=== PATIENT | female | born 1985 | race Caucasian/White ===

== ENCOUNTER 2017-05-17 12:02 | Emergency (ER) | payer OTHER ==
[~2017-05-17] VITALS: Ht 162.6 cm; Wt 64.9 kg
[2017-05-17 12:08] VITALS: BP 113/80
[2017-05-17] MEDS ORDERED: LIDOCAINE 1% / SOD BICARB 8.4% 20 ML VIAL. IJ ONE (12:45)
[2017-05-17] MEDS ORDERED: DIPHTH,PERTUSS(ACELL),TET TOX 0.5 ML DISP.SYRIN. VAX IM ONE (12:45)
[2017-05-17] MEDS ORDERED: HYDROcodone/APAP 5/325MG 1 TAB TABLET PO ONE (12:45)
--- NOTE | 2017-05-17 12:47 | RAD ---
FOOT LEFT 3V Clinical Indication: pain, first digit Comparison: None. Findings: No acute fracture or malalignment. The joint spaces are maintained. No significant soft tissue abnormality. IMPRESSION: No acute fracture or malalignment.
--- NOTE | 2017-05-17 13:37 | PHYS DOC ---
Past Medical History Past Medical History: No Pertinent History Past Surgical History: No Surgical History Alcohol Use: Occasionally Drug Use: None Adult General Chief Complaint Chief Complaint: TOE PROBLEM HPI HPI Patient is a 32 year old female who presents with foreign object to the left right toe. Patient states she tripped on rebars and plastic rods and something got into her left great toe. Review of Systems Review of Systems Constitutional: Denies fever or chills [] Eyes: Denies change in visual acuity, redness, or eye pain [] Musculoskeletal: foreign object to the left great toe Neurologic: Denies headache, focal weakness or sensory changes [] Endocrine: Denies polyuria or polydipsia [] Current Medications Current Medications Current Medications Medications (Trade) Dose Ordered Sig/Aracely Start Time Stop Time Status Last Admin Dose Admin Acetaminophen/ Hydrocodone Bitart (Lortab 5/325) 1 tab 1X ONCE 05/17/17 12:45 05/17/17 12:46 DC 05/17/17 12:44 1 TAB Diphtheria/ Tetanus/Acell Pertussis (Boostrix) 0.5 ml ONCE ONCE 05/17/17 12:45 05/17/17 12:46 DC 05/17/17 12:47 0.5 ML Lidocaine/Sodium Bicarbonate (Buffered Lidocaine 1%) 20 ml 1X ONCE 05/17/17 12:45 05/17/17 12:46 DC 05/17/17 12:45 20 ML Allergies Allergies Allergies Coded Allergies Type Severity Reaction Last Updated Verified No Known Drug Allergies 05/17/17 No Physical Exam Physical Exam Constitutional: Well developed, well nourished, no acute distress, non-toxic appearance. [] HENT: Normocephalic, atraumatic, bilateral external ears normal, oropharynx moist, no oral exudates, nose normal. [] Skin: see extremity Back: No tenderness, no CVA tenderness. [] Extremities: Left great toe lateral aspect just below the nail bed with a foreign object approximately 1 cm long and underneath the skin. Neurovascular exam is intact to the left great toe. +2 left pedal pulse. Cap refill less than 2 seconds the left great toe. Neurologic: Alert and oriented X 3, normal motor function, normal sensory function, no focal deficits noted. [] Psychologic: Affect normal, judgement normal, mood normal. [] Current Patient Data Vital Signs Vital Signs Date Time Temp Pulse Resp B/P (MAP) Pulse Ox O2 Delivery O2 Flow Rate FiO2 05/17/17 12:44 22 05/17/17 12:08 98.6 68 100 Room Air 98.6 EKG EKG [] Radiology/Procedures Radiology/Procedures []Indication: Left great toe foreign object Procedure: The area of the foreign body was left great toe. Local anesthesia over the foreign body site was 1% buffered lidocaine. The area was cleaned with normal saline and Betadine. A tiny 0.5 cm laceration was made over the foreign object. Forceps were used to pull the foreign object. the following: two pieces of 1 cm each splinters and 0.3 cm splinter was removed from the left great toe. The area was cleaned and covered with nonstick dressing. Tetanus was updated. PROCEDURE: FOOT LEFT 3V FOOT LEFT 3V Clinical Indication: pain, first digit Comparison: None. Findings: No acute fracture or malalignment. The joint spaces are maintained. No significant soft tissue abnormality. IMPRESSION: No acute fracture or malalignment. DICTATED and SIGNED BY: ÁNGEL MACIEL MD DATE: 05/17/17 0970 CC: JOHNNY AGUERO APRN; NO PCP ~ Course & Med Decision Making Course & Med Decision Making Pertinent Labs and Imaging studies reviewed. (See chart for details) Patient is in the ED with left great toe foreign object. See procedure note. 3 splint is removed from the left great toe. Tetanus was updated. Provided return precautions and discharged in stable condition. Dragon Disclaimer Dragon Disclaimer This electronic medical record was generated, in whole or in part, using a voice recognition dictation system. Departure Departure Impression: Primary Impression: Splinter of toe Disposition: HOME, SELF-CARE Condition: STABLE Referrals: NO PCP (PCP) follow up with your doctor as needed. Patient Instructions: Wood Splinters Additional Instructions: We removed splinters from your left great toe. Keep the area clean and dry. Apply Neosporin to the area twice a day for 7 days. Keep the area clean and dry. Monitor it for signs and symptoms of infection including but not limited to increased redness warmth or odor drainage from the area and return to the ED if they occur. Scripts Tramadol Hcl (ULTRAM) 50 Mg Tablet 1 TAB PO Q6HRS, #30 TAB Prov: JOHNNY AGUERO APRN 05/17/17 Problem Qualifiers Primary Impression: Splinter of toe Encounter type: initial encounter Laterality: left Qualified Codes: S90.455A - Superficial foreign body, left lesser toe(s), initial encounter JOHNNY AGUERO [employer]PECTOR May 17, 2017 13:37
[2017-05-17] MEDS ORDERED: TRAM-48 PO (13:38)
== END 2017-05-17 14:02 | disposition home or self-care (01) ==
LOC: ER 12:02
DX: S90.452A Superficial foreign body, left great toe, initial encounter (principal); W18.49XA Other slipping, tripping and stumbling without falling, initial encounter; Y93.89 Activity, other specified; Y92.89 Other specified places as the place of occurrence of the external cause; Y99.8 Other external cause status
CPT/HCPCS: 10120; 73630; 90471; 90715; 99285-25

== ENCOUNTER 2020-08-28 00:34 | Emergency (ER) | payer BC, OTHER ==
[~2020-08-28] VITALS: Ht 162.6 cm; Wt 68.0 kg
[~2020-08-28 00:34] MED LIST: TRAM-48 PO
--- NOTE | 2020-08-28 01:04 | PHYS DOC ---
Past Medical History Past Medical History: No Pertinent History Past Surgical History: No Surgical History Smoking Status: Never Smoker Alcohol Use: Occasionally Drug Use: None General Adult EDM: Chief Complaint: MULTIPLE COMPLAINTS HPI: HPI: Patient is a 35 year old female who presented to ER today for evaluation of epigastric abdominal pain, left low back pain that radiates to her left knee area associated with some tingling sensation for a week. Patient has history of acid reflux, she has been taking antiacid medication but did not get better. Patient went to see the chiropractor 3 times in a week for her back problem, no x-ray was done. Patient said they did some manipulation her back but she did not get better so she came here for evaluation today. Patient denies any bowel or bladder incontinence. Patient denies any nausea vomiting, no fever, no chest pain, no trouble breathing. Patient denies any injury to her back. Patient denies any bowel or bladder incontinence. Review of Systems: Review of Systems: Constitutional: Denies fever or chills. [] Eyes: Denies change in visual acuity. [] HENT: Denies nasal congestion or sore throat. [] Respiratory: Denies cough or shortness of breath. [] Cardiovascular: Denies chest pain or edema. [] GI: Positive for abdominal pain, no nausea vomiting, no diarrhea. : Denies dysuria. [] Musculoskeletal: Positive for left-sided back pain, no joint pain. Integument: Denies rash. [] Neurologic: Denies headache, focal weakness or sensory changes. [] Endocrine: Denies polyuria or polydipsia. [] Lymphatic: Denies swollen glands. [] Psychiatric: Denies depression or anxiety. [] Heart Score: Risk Factors: Risk Factors: DM, Current or recent (<one month) smoker, HTN, HLP, family history of CAD, obesity. Risk Scores: Score 0 - 3: 2.5% MACE over next 6 weeks - Discharge Home Score 4 - 6: 20.3% MACE over next 6 weeks - Admit for Clinical Observation Score 7 - 10: 72.7% MACE over next 6 weeks - Early Invasive Strategies Allergies: Allergies: Allergies Coded Allergies Type Severity Reaction Last Updated Verified No Known Drug Allergies 05/17/17 No Physical Exam: PE: Constitutional: Well developed, well nourished, no acute distress, non-toxic appearance. [] HENT: Normocephalic, atraumatic, bilateral external ears normal, oropharynx moist, no oral exudates, nose normal. [] Eyes: PERRLA, EOMI, conjunctiva normal, no discharge. [] Neck: Normal range of motion, no tenderness, supple, no stridor. [] Cardiovascular:Heart rate regular rhythm, no murmur [] Lungs & Thorax: Bilateral breath sounds clear to auscultation [] Abdomen: Bowel sounds normal, soft, no tenderness, no masses, no pulsatile masses. [] Skin: Warm, dry, no erythema, no rash. [] Back: There is no midline vertebral tenderness to palpation on the lumbar spine area, there is some tenderness to palpation on the left paraspinous muscle on the lumbar spine area. Extremities: No tenderness, no cyanosis, no clubbing, ROM intact, no edema. [] Neurologic: Alert and oriented X 3, normal motor function, normal sensory function, no focal deficits noted. [] Psychologic: Affect normal, judgement normal, mood normal. [] Current Patient Data: Labs: Laboratory Tests Test 08/28/20 00:46 08/28/20 00:48 08/28/20 01:20 Bedside Urine HCG, Qualitative Hcg negative Urine Collection Type Unknown Urine Color Yellow Urine Clarity Cloudy Urine pH 7.5 Urine Specific [place] 1.025 Urine Protein Negative mg/dL Urine Glucose (UA) Negative mg/dL Urine Ketones (Stick) Trace mg/dL Urine Blood Large Urine Nitrite Negative Urine Bilirubin Negative Urine Urobilinogen Dipstick 0.2 mg/dL Urine Leukocyte Esterase Trace Urine RBC 11-20 /HPF Urine WBC 5-10 /HPF Urine Squamous Epithelial Cells Mod /LPF Urine Amorphous Sediment Present /HPF Urine Bacteria Moderate /HPF Urine Mucus Mod /LPF White Blood Count 5.8 x10^3/uL Red Blood Count 4.42 x10^6/uL Hemoglobin 12.4 g/dL Hematocrit 36.4 % Mean Corpuscular Volume 82 fL Mean Corpuscular Hemoglobin 28 pg Mean Corpuscular Hemoglobin Concent 34 g/dL Red Cell Distribution Width 14.9 % Platelet Count 268 x10^3/uL Neutrophils (%) (Auto) 57 % Lymphocytes (%) (Auto) 33 % Monocytes (%) (Auto) 8 % Eosinophils (%) (Auto) 2 % Basophils (%) (Auto) 0 % Neutrophils # (Auto) 3.3 x10^3/uL Lymphocytes # (Auto) 1.9 x10^3/uL Monocytes # (Auto) 0.5 x10^3/uL Eosinophils # (Auto) 0.1 x10^3/uL Basophils # (Auto) 0.0 x10^3/uL Sodium Level 142 mmol/L Potassium Level 3.5 mmol/L Chloride Level 105 mmol/L Carbon Dioxide Level 29 mmol/L Anion Gap 8 Blood Urea Nitrogen 16 mg/dL Creatinine 1.1 mg/dL Estimated GFR (Cockcroft-Gault) 57.2 BUN/Creatinine Ratio 15 Glucose Level 96 mg/dL Calcium Level 8.9 mg/dL Total Bilirubin 0.4 mg/dL Aspartate Amino Transf (AST/SGOT) 14 U/L Alanine Aminotransferase (ALT/SGPT) 15 U/L Alkaline Phosphatase 37 U/L Total Protein 7.0 g/dL Albumin 3.9 g/dL Albumin/Globulin Ratio 1.3 Lipase 96 U/L Current Medications Medications (Trade) Dose Ordered Sig/Aracely Route PRN Reason Start Time Stop Time Status Last Admin Dose Admin Sodium Chloride 1,000 ml @ 1,000 mls/hr 1X ONCE IV 08/28/20 02:00 08/28/20 02:59 DC 08/28/20 01:52 Iohexol (Omnipaque 300 Mg/ml) 60 ml 1X ONCE IV 08/28/20 02:15 08/28/20 02:16 DC 08/28/20 02:11 Info (CONTRAST GIVEN -- Rx MONITORING) 1 each PRN DAILY PRN MC SEE COMMENTS 08/28/20 02:15 08/30/20 02:14 Ketorolac Tromethamine (Toradol 30mg Vial) 30 mg 1X ONCE IVP 08/28/20 04:30 08/28/20 04:31 DC 08/28/20 04:29 Methylprednisolone Sodium Succinate (SOLU-Medrol 125MG VIAL) 125 mg 1X ONCE IV 08/28/20 04:30 08/28/20 04:31 DC 08/28/20 04:28 Famotidine (Pepcid) 20 mg 1X ONCE PO 08/28/20 04:45 08/28/20 04:46 UNV Multi-Ingredient Mouthwash/Gargle (Gi Cocktail) 20 ml 1X ONCE SWSW 08/28/20 04:45 08/28/20 04:46 UNV Laboratory Tests Test 08/28/20 00:46 POC Urine HCG, Qualitative Hcg negative (Negative) EKG: EKG: [] Radiology/Procedures: Radiology/Procedures: [][facility] [address] [place] [address] IMAGING REPORT Signed PATIENT: NAN KEITA ACCOUNT: [id number] : 1985 LOCATION: ER AGE: 35 SEX: F EXAM STATUS: REG ER ORD. PHYSICIAN: TK MADSEN DO REASON: ABDOMINAL PAIN, BACK PAIN;OMNI 300, 60ML PROCEDURE: CT ABD PELV W/ IV CONTRST ONLY EXAM: 1. CT ABDOMEN/PELVIS WITH CONTRAST. 2. CT LUMBAR SPINE WITHOUT CONTRAST. HISTORY: Abdominal pain and back pain. TECHNIQUE: Computed tomography of the abdomen and pelvis was performed after the intravenous administration of iodinated contrast. CT of the lumbar spine was performed without intravenous contrast. One or more of the following individualized dose reduction techniques were utilized for this examination: 1. Automated exposure control. 2. Adjustment of the mA and/or kV according to patient size. 3. Use of iterative reconstruction technique. COMPARISON: None. FINDINGS: Lung windows through the visualized portions of the bases reveal no abnormality. Bone windows reveal no suspicious lesions. The liver, gallbladder, pancreas, adrenal glands, and spleen are unremarkable. Small dense foci within the kidneys. An early excretion of contrast or tiny calculi measuring <2 mm. There is no hydronephrosis. There are no ureteral calculi. Note is made of a circumaortic left renal vein. There are no pathologically enlarged lymph nodes. The uterus and ovaries are unremarkable by CT. There is no evidence of appendicitis. There is no small bowel obstruction. A mild lumbar levocurvature is likely positional. No fractures are identified. Intervertebral disc heights are maintained. There is no central canal stenosis or neural foraminal stenosis. IMPRESSION: 1. No cause for abdominal pain is identified. 2. Tiny bilateral renal calculi versus early excretion of contrast. No ureteral calculi. 3. Unremarkable examination of the lumbar spine. Electronically signed by: Domenico Solis MD (08/28/2020 3:37 AM) [facility] DICTATED and SIGNED BY: NAHOMY SOLIS MD DATE: 08/28/20 0337 Course & Med Decision Making: Course & Med Decision Making Pertinent Labs and Imaging studies reviewed. (See chart for details) Patient is a 35-year-old female who was evaluated in the ER due to epigastric abdominal pain and low back pain that radiated to her left side. CT scan her abdomen pelvic and lumbar spine did not show any acute problems. Patient will be discharged home, she was recommended follow-up with her family physician for outpatient evaluation of her back pain with an MRI of her lumbar spine. Patient is amenable to plan of care. Dragon Disclaimer: Dragon Disclaimer: This electronic medical record was generated, in whole or in part, using a voice recognition dictation system. Departure Departure Impression: Primary Impression: Gastritis Additional Impression: Sciatica, left side Disposition: 01 DC HOME SELF CARE/HOMELESS Condition: STABLE Referrals: NO PCP (PCP) follow up with your doctor for outpatient evaluation of your lower back pain with MRI of your lumbar spine. Patient Instructions: Gastritis, Adult, Sciatica Additional Instructions: Thank you for visiting our Emergency Department. We appreciate you trusting us with your care. If any additional problems come up don't hesitate to return to visit us. Please follow up with your primary care provider so they can plan additional care if needed and know about the problem that you had. If symptoms worsen come back to the Emergency Department. Any concerning symptoms that start such as chest pain, shortness of air, weakness or numbness on one side of the body, running high fevers or any other concerning symptoms return to the ER. Scripts Sucralfate (CARAFATE) 1 Gm Tablet 1 TAB PO QID for 14 Days, #56 TAB 0 Refills Prov: TK MADSEN DO 08/28/20 Omeprazole Magnesium (PRILOSEC OTC) 20 Mg Tablet.dr 20 MG PO DAILY for 30 Days, #30 TAB Prov: TK MADSEN DO 08/28/20 TK MADSEN DO Aug 28, 2020 01:04
[2020-08-28 01:14] LABS: BILIRUBIN,URINE NEGATIVE (NEG); CLARITY,URINE CLOUDY; COLOR,URINE YELLOW; NITRITE,URINE NEGATIVE (NEG); PH,URINE 7.5 (<5.0-8.0); PROTEIN,URINE NEGATIVE (NEG-TRACE); UROBILINOGEN,URINE 0.2 mg/dL (0.2 mg/dL)
[2020-08-28 01:23] LABS: AMORPHOUS SEDIMENT,UR PRESENT /HPF; BACTERIA,URINE MODERATE /HPF (0-FEW)
[2020-08-28 01:28] LABS: BASO % 0 % (0-3); EOS # 0.1 x10^3/uL (0.0-0.7); EOS % 2 % (0-3); HEMATOCRIT 36.4 % (36.0-47.0); HEMOGLOBIN 12.4 g/dL (12.0-15.5); LYMPH # 1.9 x10^3/uL (1.0-4.8); LYMPH % 33 % (24-48); MEAN CORPUSCULAR HEMOGLOBIN 28 pg (25-35); MEAN CORPUSCULAR HGB CONC 34 g/dL (31-37); MEAN CORPUSCULAR VOLUME 82 fL (79-100); MONO # 0.5 x10^3/uL (0.0-1.1); MONO % 8 % (0-9); NEUT # 3.3 x10^3/uL (1.8-7.7); NEUT % 57 % (31-73); PLATELET COUNT 268 x10^3/uL (140-400); RED BLOOD COUNT 4.42 x10^6/uL (3.50-5.40); RED CELL DISTRIBUTION WIDTH 14.9 % (11.5-14.5); WHITE BLOOD COUNT 5.8 x10^3/uL (4.0-11.0)
[2020-08-28 01:36] LABS: CALCIUM 8.9 mg/dL (8.5-10.1); CREATININE 1.1 mg/dL (0.6-1.0); GFR 57.2; POTASSIUM 3.5 mmol/L (3.5-5.1)
[2020-08-28 01:42] LABS: ALBUMIN 3.9 g/dL (3.4-5.0); ALBUMIN/GLOBULIN RATIO 1.3 (1.0-1.7); TOTAL BILIRUBIN 0.4 mg/dL (0.2-1.0)
[2020-08-28] MEDS ORDERED: IV NORMAL SALINE 1000ML BAG 1,000 ML IV ONE (02:00)
[2020-08-28] MEDS ORDERED: CONTRAST GIVEN. MC PRN (02:15)
[2020-08-28] MEDS ORDERED: IOHEXOL 300 MG/ML 100ML VIAL. IV ONE (02:15)
--- NOTE | 2020-08-28 03:40 | RAD ---
EXAM: 1. CT ABDOMEN/PELVIS WITH CONTRAST. 2. CT LUMBAR SPINE WITHOUT CONTRAST. HISTORY: Abdominal pain and back pain. TECHNIQUE: Computed tomography of the abdomen and pelvis was performed after the intravenous administration of iodinated contrast. CT of the lumbar spine was performed without intravenous contrast. One or more of the following individualized dose reduction techniques were utilized for this examination: 1. Automated exposure control. 2. Adjustment of the mA and/or kV according to patient size. 3. Use of iterative reconstruction technique. COMPARISON: None. FINDINGS: Lung windows through the visualized portions of the bases reveal no abnormality. Bone windows reveal no suspicious lesions. The liver, gallbladder, pancreas, adrenal glands, and spleen are unremarkable. Small dense foci within the kidneys. An early excretion of contrast or tiny calculi measuring <2 mm. There is no hydronephrosis. There are no ureteral calculi. Note is made of a circumaortic left renal vein. There are no pathologically enlarged lymph nodes. The uterus and ovaries are unremarkable by CT. There is no evidence of appendicitis. There is no small bowel obstruction. A mild lumbar levocurvature is likely positional. No fractures are identified. Intervertebral disc heights are maintained. There is no central canal stenosis or neural foraminal stenosis. IMPRESSION: 1. No cause for abdominal pain is identified. 2. Tiny bilateral renal calculi versus early excretion of contrast. No ureteral calculi. 3. Unremarkable examination of the lumbar spine. Electronically signed by: Domenico Solis MD (08/28/2020 3:37 AM) [facility]
[2020-08-28 04:27] VITALS: BP 125/65
[2020-08-28] MEDS ORDERED: KETOROLAC 30 MG/ML VIAL. IVP ONE (04:30)
[2020-08-28] MEDS ORDERED: methylPREDNISolone SOD SUCC PF 125 MG/2 ML VIAL. IV ONE (04:30)
[2020-08-28] MEDS ORDERED: OMEP20TA63 PO (04:43)
[2020-08-28] MEDS ORDERED: SUCR1TAB35 PO (04:43)
[2020-08-28] MEDS ORDERED: FAMOTIDINE 20 MG TABLET. PO ONE (05:00)
[2020-08-28] MEDS ORDERED: LIDO:MAALOX 1:1 20 ML SINGLE DOSE. SWSW ONE (05:00)
== END 2020-08-28 05:08 | disposition home or self-care (01) ==
LOC: ER 00:34
DX: K29.70 Gastritis, unspecified, without bleeding (principal); M54.42 Lumbago with sciatica, left side; R10.13 Epigastric pain; R20.2 Paresthesia of skin
CPT/HCPCS: 36415; 74177; 80053; 81001; 81025; 83690; 85025; 87086; 96361; 96374; 96375; 99285; J1885; J2930; J7030; Q9967